=== PATIENT | male | born 1995 | race African-American/Black ===

== ENCOUNTER 2016-05-09 01:23 | Emergency (ER) | payer BC ==
[~2016-05-09] VITALS: Ht 172.7 cm; Wt 79.4 kg
[2016-05-09 01:47] VITALS: BP 149/98
[2016-05-09] MEDS ORDERED: POLY17PO5 PO (02:38)
[2016-05-09] MEDS ORDERED: NA P133E2 RC (02:39)
--- NOTE | 2016-05-09 02:39 | PHYS DOC ---
Past Medical History Past Medical History: No Pertinent History, Constipation Past Surgical History: No Surgical History Alcohol Use: Rarely Drug Use: None Adult General Chief Complaint Chief Complaint: CONSTIPATION HPI HPI 20-year-old male who states he's having significant constipation that he has had before. He states his last bowel movement was 3 days ago. He states he is passing flatus but has some lower abdominal pain that developed over the last day. He denies any nausea or vomiting. He does not appear to be in any distress upon my initial evaluation. He denies any significant health problem is. He's been trying milk of magnesia at home without relief as well as Dulcolax. Review of Systems Review of Systems Constitutional: Denies fever or chills [] Eyes: Denies change in visual acuity, redness, or eye pain [] HENT: Denies nasal congestion or sore throat [] Respiratory: Denies cough or shortness of breath [] Cardiovascular: No additional information not addressed in HPI [] GI: Denies abdominal pain, nausea, vomiting, bloody stools or diarrhea [] : Denies dysuria or hematuria [] Musculoskeletal: Denies back pain or joint pain [] Integument: Denies rash or skin lesions [] Neurologic: Denies headache, focal weakness or sensory changes [] Endocrine: Denies polyuria or polydipsia [] Allergies Allergies Allergies Coded Allergies Type Severity Reaction Last Updated Verified No Known Drug Allergies 09/26/13 No Physical Exam Physical Exam Constitutional: Well developed, well nourished, no acute distress, non-toxic appearance. [] HENT: Normocephalic, atraumatic, bilateral external ears normal, oropharynx moist, no oral exudates, nose normal. [] Eyes: PERRLA, EOMI, conjunctiva normal, no discharge. [] Neck: Normal range of motion, no tenderness, supple, no stridor. [] Cardiovascular:Heart rate regular rhythm, no murmur [] Lungs & Thorax: Bilateral breath sounds clear to auscultation [] Abdomen: Bowel sounds normal, soft,mild lower abdominal tenderness, no masses, no pulsatile masses. [] Skin: Warm, dry, no erythema, no rash. [] Back: No tenderness, no CVA tenderness. [] Extremities: No tenderness, no cyanosis, no clubbing, ROM intact, no edema. [] Neurologic: Alert and oriented X 3, normal motor function, normal sensory function, no focal deficits noted. [] Psychologic: Affect normal, judgement normal, mood normal. [] Current Patient Data Vital Signs Vital Signs Date Time Temp Pulse Resp B/P Pulse Ox O2 Delivery O2 Flow Rate FiO2 05/09/16 01:47 98.7 102 16 99 Room Air 98.7 EKG EKG [] Radiology/Procedures Radiology/Procedures [] Course & Med Decision Making Course & Med Decision Making Pertinent Labs and Imaging studies reviewed. (See chart for details) This 20-year-old male who's having constipation is refusing an enema in the department. I do not see an indication at this time to do any imaging or laboratory workup. I will be discharging him with a course of MiraLAX as well as Fleet enemas that he can try at home with instruction to return in the next several days if he does not have any bowel movements or if he develops any nausea or vomiting. Patient is very agreeable with this plan and will be discharged without incident. I also counseled him to continue to drink plenty of fluids and to ambulate frequently. Dragon Disclaimer Dragon Disclaimer This electronic medical record was generated, in whole or in part, using a voice recognition dictation system. Departure Departure Impression: Primary Impression: Constipation Disposition: 01 HOME, SELF-CARE Admitting Physician: Other Condition: STABLE Referrals: NO PCP (PCP) Patient Instructions: Constipation, Adult, [id number] Additional Instructions: Please take your medication as prescribed. Continue to drink plenty of fluids and ambulate often. Follow up closely with your primary doctor in the next 2-3 days for your symptoms. Return to the ER if you develop any worsening pain or nausea or vomiting. Scripts Na Phos,M-B/Na Phos,Di-Ba (Fleet Enema)133 Ml Enema1 Each RC ONCE #2 BOTTLE Prov:FELTON NELSON DO 05/09/16 Polyethylene Glycol 3350 (Miralax)17 Gm Powd.pack1 Pkt PO DAILY #5 PKT Prov:FELTON NELSON DO 05/09/16 FELTON NELSON DO May 09, 2016 02:39
== END 2016-05-09 03:01 | disposition home or self-care (01) ==
LOC: ER 01:23
DX: K59.00 Constipation, unspecified (principal)
CPT/HCPCS: 99284

== ENCOUNTER 2016-06-19 19:49 | Emergency (ER) | payer SELFPAY ==
[~2016-06-19] VITALS: Ht 172.7 cm; Wt 79.4 kg
[~2016-06-19 19:49] MED LIST: NA P133E2 RC; POLY17PO29 PO
[2016-06-19 20:10] VITALS: BP 157/97
[2016-06-19] MEDS ORDERED: DIPHTH,PERTUSS(ACELL),TET TOX 0.5 ML DISP.SYRIN. VAX IM ONE (20:45)
[2016-06-19] MEDS ORDERED: SMZ/TMP 800/160MG TABLET. PO ONE (20:45)
[2016-06-19] MEDS ORDERED: HYDR-971 PO (21:20)
[2016-06-19] MEDS ORDERED: SULF1TAB24 PO (21:20)
--- NOTE | 2016-06-19 21:20 | PHYS DOC ---
Past Medical History Past Medical History: No Pertinent History, Constipation Past Surgical History: No Surgical History Alcohol Use: Rarely Drug Use: None Adult General Chief Complaint Chief Complaint: ABSCESS HPI HPI Patient is a 20 year old male who presents with an abscess of the right inner thigh for 3 days. Patient denies any drainage from the area. Denies any fever. Review of Systems Review of Systems Constitutional: Denies fever or chills [] Eyes: Denies change in visual acuity, redness, or eye pain [] HENT: Denies nasal congestion or sore throat [] Musculoskeletal: Denies back pain or joint pain [] Integument: Right thigh abscess Neurologic: Denies headache, focal weakness or sensory changes [] Endocrine: Denies polyuria or polydipsia [] Current Medications Current Medications Current Medications Medications (Trade) Dose Ordered Sig/Celine Start Time Stop Time Status Last Admin Dose Admin Acetaminophen/ Hydrocodone Bitart (Lortab 5/325) 2 tab 1X ONCE 06/19/16 21:30 06/19/16 21:31 Diphtheria/ Tetanus/Acell Pertussis (Boostrix) 0.5 ml ONCE ONCE 06/19/16 20:45 06/19/16 20:51 DC Trimethoprim/ Sulfamethoxazole (Bactrim Ds) 1 tab 1X ONCE 06/19/16 20:45 06/19/16 20:51 DC Allergies Allergies Allergies Coded Allergies Type Severity Reaction Last Updated Verified No Known Drug Allergies 09/26/13 No Physical Exam Physical Exam Constitutional: Well developed, well nourished, no acute distress, non-toxic appearance. [] HENT: Normocephalic, atraumatic, bilateral external ears normal, oropharynx moist, no oral exudates, nose normal. [] Eyes: PERRLA, EOMI, conjunctiva normal, no discharge. [] Skin: Right inner thigh proximal end with a small indurated area approximately 2 x 1 cm. The area is warm and tender to palpate with no fluctuance. Back: No tenderness, no CVA tenderness. [] Extremities: No tenderness, no cyanosis, no clubbing, ROM intact, no edema. [] Neurologic: Alert and oriented X 3, normal motor function, normal sensory function, no focal deficits noted. [] Psychologic: Affect normal, judgement normal, mood normal. [] Current Patient Data Vital Signs Vital Signs Date Time Temp Pulse Resp B/P (MAP) Pulse Ox O2 Delivery O2 Flow Rate FiO2 06/19/16 20:10 98.1 84 18 98 Room Air 98.1 EKG EKG [] Radiology/Procedures Radiology/Procedures [] Course & Med Decision Making Course & Med Decision Making Pertinent Labs and Imaging studies reviewed. (See chart for details) Patient is an abscess to the right inner thigh probably from ingrown hairs that is not ready to be drained. Tetanus is up-to-date. Discharged with Bactrim. Warm compresses recommended to the area. Follow-up with his own doctor in 1-2 weeks. Dragon Disclaimer Dragon Disclaimer This electronic medical record was generated, in whole or in part, using a voice recognition dictation system. Departure Departure Impression: Primary Impression: Abscess of right lower leg Disposition: HOME, SELF-CARE Condition: STABLE Referrals: NO PCP (PCP) GILBERTO LUCAS MD Follow-up with your own doctor or the provided doctor in one week Patient Instructions: Abscess Additional Instructions: You have an abscess of the right inner thigh that was not ready to be drained. Keep the area clean and dry. Apply warm compresses to the area twice a day. Complete your antibiotics. Follow-up with your own doctor the provided doctor in 1-2 weeks. Come back to the ED if symptoms worsen especially if you have a fever. Scripts Hydrocodone/Apap 5-325 (NORCO 5-325 TABLET) 1 Each Tablet 1-2 TAB PO Q4-6HRS, #40 TAB Prov: MICHEAL ESTRADA APRN 06/19/16 Sulfamethoxazole/Trimethoprim (BACTRIM DS TABLET) 1 Each Tablet 1 TAB PO BID, #20 TAB Prov: MICHEAL ESTRADA APRN 06/19/16 MICHEAL ESTRADA APRN June 19, 2016 21:20
[2016-06-19] MEDS ORDERED: HYDROcodone/APAP 5/325MG 1 TAB TABLET PO ONE (21:30)
== END 2016-06-19 21:32 | disposition home or self-care (01) ==
LOC: ER 19:49
DX: L02.415 Cutaneous abscess of right lower limb (principal)
CPT/HCPCS: 99283

== ENCOUNTER 2018-05-23 12:37 | Emergency (ER) | payer BC ==
[~2018-05-23] VITALS: Ht 172.7 cm; Wt 77.1 kg
[~2018-05-23 12:37] MED LIST changes: +HYDR-3164 PO; +SULF1TAB24 PO
--- NOTE | 2018-05-23 13:47 | RAD ---
3 view study of the right hand Clinical indications: Punched wall. Right hand pain. FINDINGS: No acute fracture or dislocation or lytic process is seen. IMPRESSION: No acute fracture. Electronically signed by: Azar Gatica MD (05/23/2018 1:44 PM) [id number]
--- NOTE | 2018-05-23 14:06 | PHYS DOC ---
Past Medical History Past Medical History: No Pertinent History Past Surgical History: No Surgical History Alcohol Use: None Drug Use: None Adult General Chief Complaint Chief Complaint: HAND PROBLEM HPI HPI Patient is a 22 year old male with no significant medical history who presents to the ED today complaining of mild to moderate right hand pain that began 3 weeks ago after he punched a wall. Patient states the pain is worse on range of motion. Patient is right-handed. Review of Systems Review of Systems Constitutional: Denies fever or chills [] Musculoskeletal: Reports right hand pain Integument: Denies rash or skin lesions [] Neurologic: Denies headache, focal weakness or sensory changes [] All other systems were reviewed and found to be within normal limits, except as documented in this note. Allergies Allergies Allergies Coded Allergies Type Severity Reaction Last Updated Verified No Known Drug Allergies 09/26/13 No Physical Exam Physical Exam Constitutional: Well developed, well nourished, no acute distress, non-toxic appearance. [] Skin: Warm, dry, no erythema, no rash. [] Back: No tenderness, no CVA tenderness. [] Extremities: Right hand with no obvious deformity, old scabbing noted on the right middle finger knuckle. Tenderness along the right middle finger knuckle. Full range of motion to the right hand and fingers. Adequate radial, medial, ulnar sensation to the right hand. +2 right radial pulse. Cap refill less than 2 seconds the right fingers. Neurologic: Alert and oriented X 3, normal motor function, normal sensory function, no focal deficits noted. [] Psychologic: Affect normal, judgement normal, mood normal. [] Current Patient Data Vital Signs Vital Signs Date Time Temp Pulse Resp B/P (MAP) Pulse Ox O2 Delivery O2 Flow Rate FiO2 05/23/18 12:43 98.0 60 16 155/79 (104) 99 Room Air 98.0 EKG EKG [] Radiology/Procedures Radiology/Procedures []PROCEDURE: HAND RIGHT 3V 3 view study of the right hand Clinical indications: Punched wall. Right hand pain. FINDINGS: No acute fracture or dislocation or lytic process is seen. IMPRESSION: No acute fracture. Electronically signed by: Zoe Gatica MD (05/23/2018 1:44 PM) [id number] DICTATED and SIGNED BY: ZOE GATICA MD DATE: 05/23/18 134 Course & Med Decision Making Course & Med Decision Making Pertinent Labs and Imaging studies reviewed. (See chart for details) This is a 22-year-old male patient presenting to the ED today with right hand pain after punching a wall 3 weeks ago, right hand x-rays interpreted by radiologist are negative for any acute findings. Patient was discharged to home. Tylenol Motrin for pain. Follow-up with orthopedic doctor in 1-2 weeks as needed. Dragon Disclaimer Dragon Disclaimer This electronic medical record was generated, in whole or in part, using a voice recognition dictation system. Departure Departure Impression: Primary Impression: Contusion of right hand Disposition: HOME, SELF-CARE Condition: STABLE Referrals: NO PCP (PCP) OZZIE SEVILLA II, MD follow up in 1-2 weeks Patient Instructions: Contusion, [id number] Additional Instructions: You were seen for right hand contusion. Your right hand x-rays are negative for any acute findings. Continue to ice and elevate the extremity. Take Tylenol/ Motrin as needed for pain. You can follow-up with your own doctor the provided orthopedic doctor in one week Problem Qualifiers Primary Impression: Contusion of right hand Encounter type: initial encounter Qualified Codes: S60.221A - Contusion of right hand, initial encounter MICHEAL ESTRADA APRN May 23, 2018 14:06
[2018-05-23 14:12] VITALS: BP 141/79
== END 2018-05-23 14:20 | disposition home or self-care (01) ==
LOC: ER 12:37
DX: S60.221A Contusion of right hand, initial encounter (principal); W22.8XXA Striking against or struck by other objects, initial encounter; Y93.89 Activity, other specified; Y92.89 Other specified places as the place of occurrence of the external cause; Y99.8 Other external cause status
CPT/HCPCS: 73130; 99284

== ENCOUNTER 2020-01-30 20:44 | Emergency (ER) | payer SELFPAY ==
[~2020-01-30] VITALS: Ht 175.3 cm; Wt 77.1 kg
[2020-01-30 21:00] VITALS: BP 132/83
--- NOTE | 2020-01-30 21:01 | PHYS DOC ---
Past Medical History Past Medical History: No Pertinent History Past Surgical History: No Surgical History Smoking Status: Never Smoker Alcohol Use: None Drug Use: None General Adult EDM: Chief Complaint: SKIN RASH/ABSCESS HPI: HPI: 24-year-old male past medical history of groin abscesses, presents the ED with complaints of painful rash in right groin for the past few days, no associated drainage. Reports history of similar infections in the past. Cannot recall his last antibiotic. No known history of MRSA. No history of immunocompromise state including HIV, cancer, diabetes daily alcohol abuse. Is not an IV drug user. Shaves in this region occasionally. Review of Systems: Review of Systems: Constitutional: Denies fever or chills. [] Eyes: Denies change in visual acuity. [] HENT: Denies nasal congestion or sore throat. [] Respiratory: Denies cough or shortness of breath. [] Cardiovascular: Denies chest pain or edema. [] GI: Denies abdominal pain, nausea, vomiting, bloody stools or diarrhea. [] : Denies dysuria., Hematuria or urethral discharge Musculoskeletal: Denies back pain or joint pain. [] Integument: Denies crepitus Neurologic: Denies headache, focal weakness or sensory changes. [] Endocrine: Denies polyuria or polydipsia. [] Lymphatic: Denies swollen glands. [] Psychiatric: Denies depression or anxiety. [] Heart Score: Risk Factors: Risk Factors: DM, Current or recent (<one month) smoker, HTN, HLP, family history of CAD, obesity. Risk Scores: Score 0 - 3: 2.5% MACE over next 6 weeks - Discharge Home Score 4 - 6: 20.3% MACE over next 6 weeks - Admit for Clinical Observation Score 7 - 10: 72.7% MACE over next 6 weeks - Early Invasive Strategies Allergies: Allergies: Allergies Coded Allergies Type Severity Reaction Last Updated Verified No Known Drug Allergies 09/26/13 No Physical Exam: PE: Constitutional: Well developed, well nourished, no acute distress, non-toxic appearance. HENT: Normocephalic, atraumatic, Eyes: EOMI, conjunctiva normal, no discharge. Neck: Normal range of motion, supple, Cardiovascular: S1/2 present, regular rhythm Lungs & Thorax: Speaking in full sentences, bilateral equal chest rise, no tachypnea or increased work of breathing Abdomen: soft, no tenderness, Skin: Warm, dry, no erythema, no rash. [] Back: No tenderness, no CVA tenderness. [] Extremities: No tenderness, no cyanosis, no edema Neurologic: Alert and oriented X 3, normal motor function, normal sensory function, no focal deficits noted. [] Psychologic: Affect normal, judgement normal, mood normal. [] : right groin with erythema that extends over medial right upper thich (8x4cm) with 3x3cm area of induration over right side of mons pubis and a 1.1mm pustule, rash does not extend to scrotum/penis/perineum EKG: EKG: [] Radiology/Procedures: Radiology/Procedures: [] Course & Med Decision Making: Course & Med Decision Making Pertinent Labs and Imaging studies reviewed. (See chart for details) Concern for right groin, thigh and mons pubis cellulitis with a small pustule - no obvious fluctuant abscess. Patient afebrile, well-appearing with no urinary symptoms. Will discharge home with Keflex and Bactrim (goodrx cards given, has no insurance), strict ED return precautions were given for fever, worsening rash, genital pain, difficulties urinating or 40s gangrene. Encouraged urgent outpatient follow-up with PMD or wound care center in 2 days for wound check. Life-threatening processes were considered but are low suspicion at this time, given history, physical exam and ED workup. Pt was educated on all prescription medications and adverse effects. All patient's questions were answered and pt was stable at time of discharge. Life/limb-threatening differential includes but is not limited to, Sulema's gangrene or necrotizing fasciitis, abscess), ureterolithiasis, thrombophlebitis, erythema multiforme, rose-efra syndrome, toxic epidermal necrolysis, staphylococcal scalded skin syndrome, necrotizing fasciitis/myositis/cellulitis, purpura fulminans, heparin or warfarin induced skin necrosis, anaphylaxis drug rash, disseminated intravascular coagulation, disseminated gonococcal disease, vasculitis, septicemia, I spoken with the patient and her caregivers. I explained the patient's condition, diagnoses and treatment plan based on the information available to me at this time. I have answered the patient and her caregiver's questions and addressed any concerns. The patient and her caregivers have a good understanding of patient's diagnosis, condition and treatment plan as can be expected at this point. Vital signs have been stable. Patient's condition is stable and appropriate for discharge from the emergency department. Patient will pursue further outpatient evaluation with primary care physician or other designated or consulting physician as outlined in the discharge instructions. The patient and/or caregivers are agreeable to this plan of care and follow-up instructions have been explained in detail. The patient and/or caregivers have received these instructions in written form and have expressed an understanding of the discharge instructions. The patient and/or caregivers are aware that any significant change of condition or worsening of symptoms should prompt immediate return to this or the closest emergency department or call to 1. Mark Disclaimer: Vettery Disclaimer: This electronic medical record was generated, in whole or in part, using a voice recognition dictation system. Departure Departure Impression: Primary Impression: Skin pustule Additional Impression: Cellulitis of right thigh Disposition: 01 DC HOME SELF CARE/HOMELESS Condition: STABLE Referrals: NO PCP (PCP) FOLLOW UP WITH FAMILY MEDICINE: Family Medicine Address: [address], [address] [place] [address] Patient Instructions: Abscess, Cellulitis Additional Instructions: FOLLOW UP WITH WOUND CARE: [facility] Address: [address], [address] [place] [address] EMERGENCY DEPARTMENT GENERAL DISCHARGE INSTRUCTIONS Thank you for coming to [facility] Emergency Department (ED) today and trusting us with you care. We trust that you had a positive experience in our Emergency Department. If you wish to speak to the department management, you may call the Director at [phone]. YOUR FOLLOW UP INSTRUCTIONS ARE FOLLOWS: 1. Do you have a private Doctor? If you do not have a private doctor, please ask for a resource list of physicians or clinics that may be able to assist you with follow up care. 2. The Emergency Physicain has interpreted your x-rays. The X-Ray specialist will also review them. If there is a change in the findings, you will be notified in 48 hours when at all possible. 3. A lab test or culture has been done, your results will be reviewed and you will be notified if you need a change in treatment. ADDITIONAL INSTRUCTIONS AND INFORMATION: 1. Your care today has been supervised by a physician who is specially trained in emergency care. Many problems require more than one evaluation for a complete diagnosis and treatment. We recommend that you schedule your follow up appointment as recommended to ensure complete treatment of you illness or injury. If you are unable to obtain follow up care and continue to have a problem, or if your condition worsens, we recommend that you return to the ED. 2. We are not able to safely determine your condition over the phone nor are we able to give sound medical advice over the phone. For these safety reasons, if you call for medical advice we will ask you to come to the ED for further evaluation. 3. If you have any questions regarding these discharge instructions please call the ED at [phone]. SAFETY INFORMATION: In the interest of safety, wellness, and injury prevention; we encourage you to wear your sealbelt, if you smoke; quite smoking, and we encourage family to use a protective helmet for bicycling and other sporting events that present an increased risk for head injury. IF YOUR SYMPTOMS WORSEN OR NEW SYMPTOMS DEVELOP, OR YOU HAVE CONCERNS ABOUT YOUR CONDITION; OR IF YOUR CONDITION WORSENS WHILE YOU ARE WAITING FOR YOUR FOLLOW UP APPOINTMENT; EITHER CONTACT YOUR PRIMARY CARE DOCTOR, THE PHYSICIAN WHOSE NAME AND NUMBER YOU WERE GIVEN, OR RETURN TO THE ED IMMEDIATELY. Scripts Sulfamethoxazole/Trimethoprim (BACTRIM DS TABLET) 1 Each Tablet 1 TAB PO BID for infection for 10 Days, #20 TAB Prov: ESTELLA YEH DO 01/30/20 Cephalexin (KEFLEX) 500 Mg Capsule 2 CAP PO Q12HR for 10 Days, #40 CAP Prov: ESTELLA YEH DO 01/30/20 ESTELLA YEH DO Jan 30, 2020 21:01
[2020-01-30] MEDS ORDERED: SULF1TAB24 PO (21:10)
[2020-01-30] MEDS ORDERED: CEPH-264 PO (21:10)
== END 2020-01-30 21:20 | disposition home or self-care (01) ==
LOC: ER 20:44
DX: L03.115 Cellulitis of right lower limb (principal); L08.9 Local infection of the skin and subcutaneous tissue, unspecified; R10.31 Right lower quadrant pain
CPT/HCPCS: 99283